=== PATIENT | male | born 1975 | race Caucasian/White ===

== ENCOUNTER 2023-07-20 06:20 | Day surgery (SDC) | payer OTHER, SELFPAY ==
[2023-06-14 08:05] VITALS: BMI 28.2
--- NOTE | 2023-07-19 11:22 | WPDANESEPPF ---
Anes - Initial Pre Proc Eval Procedure: Operation Date: 07/20/23 08:00 Proposed Procedures p Screening Colonoscopy - Omar Villagran MD Date/Time: 07/19/23 11:22 Surgeon: Omar Villagran MD Pre Op Diagnosis: Neoplasm Screening Patient Data Age: 48 Gender: M Height: 1.7 m Weight: 81.647 kg Allergies Allergy/AdvReac Type Severity Reaction Status Date / Time No Known Allergies Allergy Mild Verified 07/20/23 06:52 Home Medications Medication Instructions Recorded Confirmed Type dowptpah-lcckrzaw-rfmlj acid 400 1 tablet PO DIRECTED 10/19/22 07/20/23 History mcg-vit K 20 mcg-lycop 300 mcg tablet (One-A-Day Men's Multivitamin) propranolol 20 mg tablet 20 mg PO Q12H #60 tabs 03/20/23 07/20/23 Rx alprazolam 0.25 mg tablet 0.25 mg PO ONCE #7 tabs 05/16/23 07/20/23 Rx sodium,potassium,mag sulfates 17.5 See Rx Instructions PO .COMPLEX 06/14/23 07/20/23 Rx gram-3.13 gram-1.6 gram oral soln #354 mL (Suprep Bowel Prep Kit) Patient hx anesthesia problems: none Family hx anesthesia problems: none Results Review: All pre-operative results and documents have been reviewed as part of the pre-operative evaluation. [facility] Past Medical History Medical History Anxiety Seasonal allergies Family History Family History Father Hypertension Aneurysm Sibling Hypertension Patient's sister is Mother Asthma Family history of chronic obstructive pulmonary disease Metastatic lung cancer (metastasis from lung to other site) Emphysema lung Sibling Hypertension Lung cancer Emphysema lung Sibling Hypertension Heart disease Depression Anxiety Grandparent Cancer of unknown origin Aneurysm Other Diabetes mellitus Family history of heart disease in male family member before age 55 Family history of malignant neoplasm of breast Social History Social History Smoking status: Never smoker Alcohol intake: current Drinks per week: 18 Alcohol use details: 18 pack of beer on the weekends Substance use: never Substance use type: does not use Lack of Transportation: No Lack of Food: Never True Current Housing: I Have Housing Concerned About Future Housing: No Difficulty Paying Gas/Electric Bills: No Difficulty Paying for Meds: No Currently Unemployed: No Education: High School Diploma/GED Difficulty w/ Childcare or Family Care: No Living arrangements: with family Occupation/Education: occupation Gender identity (if verbalized by the patient): Male Sexual Orientation (if Verbalized by the Patient): Straight or Heterosexual Spiritual care concerns: No Agree to blood products: Yes Anes - Eval Final PreProcedure Day of Procedure 07/19/23 11:22 Patient weight: overweight Heart: regular rate and rhythm Lungs: clear to auscultation Airway: Mallampati scale class II Neurological: alert and oriented Last oral intake: >/= 8 hours ASA classification: III Emergent: no Anesthetic plan: proceed Anesthesia type and monitoring: general GIVS and standard monitoring Results Review: All pre-operative results and documents have been reviewed as part of the pre-operative evaluation. Informed Consent: The patient's anesthetic plan and its attendant risks and benefits were discussed with the patient/family/POA. Questions were solicited and answers provided to the satisfaction of the patient/family/POA.
[2023-07-20 06:57] VITALS: BP 173/114; PULSE 84; RESP 20; TEMP 36.7; O2SAT 100
--- NOTE | 2023-07-20 07:14 | PM.HPGS ---
History of Present Illness History of Present Illness Consent: Risks, benefits, and alternatives have been discussed and questions answered. Patient agrees to proceed with procedure. Chief complaint: Neoplasm Screening Narrative: Helio Wesley is a 48 year old male presents for screening colonoscopy. Patient's current weight appetite and bowel movements are normal. He denies abdominal pain. Patient has had no bleeding. Family history is noncontributory. Review of Systems Review of Systems: Review of systems is noncontributory. [facility] Past Medical History Medical History Anxiety Seasonal allergies Family History Family History Father Hypertension Aneurysm Sibling Hypertension Patient's sister is Mother Asthma Family history of chronic obstructive pulmonary disease Metastatic lung cancer (metastasis from lung to other site) Emphysema lung Sibling Hypertension Lung cancer Emphysema lung Sibling Hypertension Heart disease Depression Anxiety Grandparent Cancer of unknown origin Aneurysm Other Diabetes mellitus Family history of heart disease in male family member before age 55 Family history of malignant neoplasm of breast Social History Social History Smoking status: Never smoker Alcohol intake: current Drinks per week: 18 Alcohol use details: 18 pack of beer on the weekends Substance use: never Substance use type: does not use Lack of Transportation: No Lack of Food: Never True Current Housing: I Have Housing Concerned About Future Housing: No Difficulty Paying Gas/Electric Bills: No Difficulty Paying for Meds: No Currently Unemployed: No Education: High School Diploma/GED Difficulty w/ Childcare or Family Care: No Living arrangements: with family Occupation/Education: occupation Gender identity (if verbalized by the patient): Male Sexual Orientation (if Verbalized by the Patient): Straight or Heterosexual Spiritual care concerns: No Agree to blood products: Yes Meds Home Medications and Allergies Home Medications Medication Instructions Recorded Confirmed Type yyjvuxvb-jsbgbqlj-eufvy acid 400 1 tablet PO DIRECTED 10/19/22 07/20/23 History mcg-vit K 20 mcg-lycop 300 mcg tablet (One-A-Day Men's Multivitamin) propranolol 20 mg tablet 20 mg PO Q12H #60 tabs 03/20/23 07/20/23 Rx alprazolam 0.25 mg tablet 0.25 mg PO ONCE #7 tabs 05/16/23 07/20/23 Rx sodium,potassium,mag sulfates 17.5 See Rx Instructions PO .COMPLEX 06/14/23 07/20/23 Rx gram-3.13 gram-1.6 gram oral soln #354 mL (Suprep Bowel Prep Kit) Allergies Allergy/AdvReac Type Severity Reaction Status Date / Time No Known Allergies Allergy Mild Verified 07/20/23 06:52 Vital Signs Vital Signs - 24 hr 07/20/23 06:57 Temperature 98.1 F Pulse Rate 84 Respiratory Rate 20 Blood Pressure 173/114 H Pulse Oximetry 100 Oxygen Delivery Room Air Exam Narrative: Physical exam reveals patient to be alert. Vital signs stable. HEENT exam is unremarkable. Patient is anicteric. Is are clear to auscultation and to percussion heart is without murmur or extra sounds. Abdomen bowel sounds are present soft nontender with no organomegaly. Digital external rectal exam is normal. Assessment and Plan Assessment and plan (1) Encounter for screening colonoscopy: Code(s): Z12.11 - Encounter for screening for malignant neoplasm of colon Status: Acute Assessment and Plan: Patient presents today for screening colonoscopy. He appears to be at average risk for colon polyps. Further recommendations may be given after endoscopy.
[2023-07-20] MEDS: LACTATED RINGERS 1,000 ML 150 ML IV CONT (07:19)
[2023-07-20] MEDS: SIMETHICONE ORAL SUSPENSION 20 MG/0.3 ML 30 ML BOTTLE 0.6 ML IRRIGATION (08:04)
[2023-07-20 08:10] VITALS: BP 127/79; PULSE 87; RESP 18; O2SAT 97
[2023-07-20 08:20] VITALS: BP 120/91; PULSE 78; RESP 18; O2SAT 99
[2023-07-20 08:30] VITALS: BP 134/91; PULSE 77; RESP 18; O2SAT 99
--- NOTE | 2023-07-20 09:46 | WPDANESPN ---
Anes - Prog Note Post-Op Date/Time: 07/20/23 09:46 Cardiovascular status: normal Respiratory status: normal Airway patency: baseline Mental status: baseline Post-Op hydration status: normal Vital Signs: Last Vital Signs Temp 36.7 C 07/20/23 06:57 Pulse 77 07/20/23 08:30 Resp 18 07/20/23 08:30 BP 134/91 H 07/20/23 08:30 Pulse Ox 99 07/20/23 08:30 O2 Del Method Room Air 07/20/23 08:30 Pain Score (VAS): 0 I/O: Intake & Output 07/19/23 07/20/23 07/20/23 23:59 07:59 15:59 Intake Total 1000 Balance 1000 Patient Feedback: Patient satisfied with anesthetic care.
== END 2023-07-20 08:39 | disposition home or self-care (01) ==
PROVIDERS: PCP Family Medicine; Visit Provider Internal Medicine Gastroenterology
PROC: 0DJD8ZZ Inspection of Lower Intestinal Tract, Via Natural or Artificial Opening Endoscopic (ICD-10-PCS; CPT 45378; principal; 2023-07-20 08:00)
DX: Z12.11 Encounter for screening for malignant neoplasm of colon (principal); K64.8 Other hemorrhoids
CPT/HCPCS: 45378